=== PATIENT | female | born 1985 | race Caucasian/White ===

== ENCOUNTER 2016-08-19 22:34 | Emergency (ER) | payer BC ==
[~2016-08-19] VITALS: Ht 157.5 cm; Wt 78.0 kg
[2016-08-19 22:35] VITALS: BP 126/77
[2016-08-19] MEDS ORDERED: CITA40TA4 PO (22:47)
== END 2016-08-20 00:52 | disposition home or self-care (01) ==
LOC: M ED 23:40
DX: R04.0 Epistaxis (principal)

== ENCOUNTER → 2017-04-13 | Outpatient (REF) | payer BC | LOC: M LAB REF 20:33 | DX: R30.0 Dysuria (principal) | CPT/HCPCS: 87086 ==

== ENCOUNTER → 2017-07-18 | Outpatient (REF) | payer BC | LOC: M SFHCWAGY 08:35 | DX: Z12.4 Encounter for screening for malignant neoplasm of cervix (principal) | CPT/HCPCS: G0123 ==

== ENCOUNTER 2017-11-20 09:37 | Emergency (ER) | payer BC ==
[2017-11-20] MEDS: MECLIZINE 25 MG TABLET PO (10:28)
[2017-11-20] MEDS: METOCLOPRAMIDE 10 MG TAB PO (10:28)
== END 2017-11-20 10:33 | disposition home or self-care (01) ==
LOC: M ED 09:37
DX: R94.31 Abnormal electrocardiogram [ECG] [EKG] (principal); R51 Headache; R11.0 Nausea; M54.6 Pain in thoracic spine; F32.9 Major depressive disorder, single episode, unspecified; Z79.899 Other long term (current) drug therapy
CPT/HCPCS: 93005

== ENCOUNTER 2017-11-27 08:09 | Outpatient (RCR) | payer BC | END 2017-12-10 | LOC: M PT 08:09 | DX: R42 Dizziness and giddiness (principal) | CPT/HCPCS: 97162 ==

== ENCOUNTER 2020-05-30 12:28 | Emergency (ER) | payer BC, MEDICAID ==
[~2020-05-30] VITALS: Ht 157.5 cm; Wt 84.5 kg
[~2020-05-30 12:28] MED LIST: CITA40TA4 PO; MECL1TAB31 PO
[2020-05-30] MEDS ORDERED: MORPHINE 4 MG/ML 1ML VIAL/SYRINGE (J2270) IV ONE (13:20)
[2020-05-30 13:24] LABS: BASO # 0.1 10^3/uL (0.0-0.2); BASO % 0.3 % (0.0-1.0); EOS # 0.2 10^3/uL (0.0-0.5); EOS % 0.8 % (0.0-3.0); HEMATOCRIT 41.2 % (36.0-47.0); HEMOGLOBIN 13.4 g/dl (12.0-15.5); LYMPH # 1.5 10^3/uL (1.5-5.0); LYMPH % 7.6 % (24.0-44.0); MEAN CORPUSCULAR HEMOGLOBIN 30.2 pg (27.0-33.0); MEAN CORPUSCULAR HGB CONC 32.5 g/dl (32.0-36.5); MEAN CORPUSCULAR VOLUME 92.8 fl (80.0-96.0); MONO % 5.1 % (2.0-8.0); NEUTROPHILS # 16.4 10^3/uL (1.5-8.5); NEUTROPHILS % 85.6 % (36.0-66.0); PLATELET COUNT, AUTOMATED 240 10^3/uL (150-450); RED BLOOD COUNT 4.44 10^6/uL (4.00-5.40); WHITE BLOOD COUNT 19.1 10^3/uL (4.0-10.0)
[2020-05-30] MEDS ORDERED: ONDANSETRON 4MG/2ML VIAL IV ONE (13:40)
[2020-05-30 13:46] LABS: BILIRUBIN,DIRECT 0.2 MG/DL (0.0-0.2); BILIRUBIN,TOTAL 0.6 MG/DL (0.2-1.0)
--- NOTE | 2020-05-30 14:18 | REP ---
INDICATION: ruq pain. COMPARISON: None. TECHNIQUE: Multiple sonographic views of the abdominal right upper quadrant. FINDINGS: There is no cholelithiasis, gallbladder wall thickening or pericholecystic fluid. There is a 5 mm mucosal polyp along the gallbladder anterior wall. There is no intrahepatic or extrahepatic biliary duct dilatation. The common biliary duct measures 4 mm in diameter. The hepatic parenchyma is homogeneous and otherwise unremarkable. There are limited views of the pancreatic head that are unremarkable. The remainder of the pancreas is obscured by bowel gas. The right kidney measures 11.8 x 4.9 x 3.7 cm and is normal size. There is no right renal calculus, hydronephrosis, cystic mass or solid mass. There is no right upper quadrant abdominal free fluid. IMPRESSION: 5 mm gallbladder mucosal polyp. No cholelithiasis or biliary duct dilatation. The pancreas is mostly obscured by bowel gas. No free fluid. <Electronically signed by Gene Ramirez > 05/30/20 [id number]
[2020-05-30] MEDS ORDERED: KETOROLAC 30 MG/ML 1ML VIAL IV ONE (14:45)
[2020-05-30] MEDS ORDERED: ISOVUE-370 76% 100ML VIAL As Ordered ONE (15:33)
--- NOTE | 2020-05-30 16:18 | REP ---
INDICATION: abdominal pain leukocytosis. COMPARISON: None. TECHNIQUE: Abdomen pelvis CT with IV contrast, without bowel contrast. FINDINGS: The visualized lung vargas are unremarkable. The hepatic parenchyma, gallbladder, pancreas and spleen are unremarkable. The adrenals, kidneys and abdominal aorta are unremarkable. There is no periaortic adenopathy or mass. There is no ascites. There is no bowel distention or obstruction. There is wall thickening and luminal narrowing of the transverse colon and of the descending colon compatible with infectious versus inflammatory colitis in the appropriate clinical setting. There are no inflammatory changes in the mesentery. Pelvis: The uterus and bladder are unremarkable. There are bilateral tubal ligation clips. There is a 2.6 cm right adnexal cyst. The appendix is unremarkable. The terminal ileum is unremarkable. There is no pelvic free fluid or adenopathy. IMPRESSION: There are findings compatible with infectious versus inflammatory colitis of transverse colon and descending colon. There is a 2.6 cm right adnexal cyst. There are bilateral tubal ligation clips. The appendix and terminal ileum are unremarkable. There is no ascites or adenopathy. <Electronically signed by Gene Ramirez > 05/30/20 [id number]
[2020-05-30] MEDS ORDERED: metroNIDAZOLE (FLAGYL) 500MG TABLET PO ONE (16:30)
[2020-05-30] MEDS ORDERED: CIPROFLOXACIN 500MG TABLET PO ONE (16:30)
[2020-05-30] MEDS ORDERED: CIPR-249 PO (16:32)
[2020-05-30] MEDS ORDERED: ONDA4TAB6 PO (16:32)
[2020-05-30] MEDS ORDERED: FLAG500T PO (16:32)
[2020-05-30 16:49] VITALS: BP 120/72
== END 2020-05-30 16:58 | disposition home or self-care (01) ==
LOC: M ED 12:28
DX: N83.299 Other ovarian cyst, unspecified side (principal); K52.9 Noninfective gastroenteritis and colitis, unspecified; F32.9 Major depressive disorder, single episode, unspecified; N83.8 Other noninflammatory disorders of ovary, fallopian tube and broad ligament; K82.4 Cholesterolosis of gallbladder; Z79.899 Other long term (current) drug therapy
CPT/HCPCS: 36415; 74177; 76705; 80047; 80076; 81001; 83690; 84702; 85025; 96374; 96375; 99284; J1885; J2270; J2405; Q9967

== ENCOUNTER → 2020-06-02 | Outpatient (REF) | payer MEDICAID ==
[~2020-06-02] MED LIST changes: +CIPR-249 PO; +FLAG500T PO; +ONDA4TAB6 PO
[2020-06-02 16:41] LABS: BASO # 0.1 10^3/uL (0.0-0.2); BASO % 0.7 % (0.0-1.0); EOS # 0.2 10^3/uL (0.0-0.5); EOS % 2.4 % (0.0-3.0); HEMOGLOBIN 13.8 g/dl (12.0-15.5); LYMPH % 27.6 % (24.0-44.0); MEAN CORPUSCULAR HEMOGLOBIN 30.5 pg (27.0-33.0); MEAN CORPUSCULAR HGB CONC 32.1 g/dl (32.0-36.5); MEAN CORPUSCULAR VOLUME 95.1 fl (80.0-96.0); MONO # 0.6 10^3/uL (0.0-0.8); MONO % 7.9 % (2.0-8.0); NEUTROPHILS # 4.4 10^3/uL (1.5-8.5); NEUTROPHILS % 61.1 % (36.0-66.0); PLATELET COUNT, AUTOMATED 283 10^3/uL (150-450); RED BLOOD COUNT 4.52 10^6/uL (4.00-5.40); WHITE BLOOD COUNT 7.1 10^3/uL (4.0-10.0)
[2020-06-02 17:11] LABS: ALBUMIN 3.9 GM/DL (3.2-5.2); ALT/SGPT 21 U/L (12-78); BILIRUBIN,TOTAL 0.2 MG/DL (0.2-1.0); BLOOD UREA NITROGEN 15 MG/DL (7-18); CALCIUM LEVEL 8.7 MG/DL (8.5-10.1); CARBON DIOXIDE LEVEL 28 MEQ/L (21-32); CHLORIDE LEVEL 110 MEQ/L (98-107); CREATININE FOR GFR 0.82 MG/DL (0.55-1.30); GLOMERULAR FILTRATION RATE > 60.0 (>60); GLUCOSE, FASTING 62 MG/DL (70-100); POTASSIUM SERUM 4.5 MEQ/L (3.5-5.1); SODIUM LEVEL 142 MEQ/L (136-145); TOTAL PROTEIN 6.9 GM/DL (6.4-8.2)
== END ==
LOC: M SFHCADAM 11:26
PROVIDERS: ATTEND Physician Assistant
DX: K52.9 Noninfective gastroenteritis and colitis, unspecified (principal); D72.823 Leukemoid reaction

== ENCOUNTER → 2020-07-24 | Outpatient (CLI) | payer BC, MEDICAID ==
--- NOTE | 2020-07-26 08:22 | REP ---
INDICATION: N83.201 CYST OF RT OVARY COMPARISON: None. TECHNIQUE: Transabdominal pelvic ultrasound followed by transvaginal examination for better evaluation of the endometrium and adnexa with color Doppler evaluation of the ovaries. FINDINGS: Bladder is unremarkable and measures 13.2 x 7.7 x 10.1 cm. Heterogeneous anteverted uterus measures 13.4 x 4.1 x 6.5 cm. The endometrial complex measures 7.5 mm thickness. Evidence for prior Caesarean section scar. Bilateral ovaries are normal in appearance and vascularity without evidence for torsion. Right ovary measures 2.8 x 2.0 x 2.5 cm; R I = 0.60. Left ovary measures 2.2 x 1.6 x 1.8 cm; R I = 0.54. No ovarian/adnexal cysts. No pelvic fluid or mass lesion. IMPRESSION: Essentially normal pelvic ultrasound. <Electronically signed by Lincoln Erickson > 07/26/20 [id number]
== END ==
LOC: M WHC 08:18
PROVIDERS: ATTEND Advanced Practice Midwife
DX: N85.4 Malposition of uterus (principal); Z98.890 Other specified postprocedural states

== ENCOUNTER → 2020-10-21 | Outpatient (REF) | payer MEDICAID, BC | LOC: M SFHCWAGY 10:35 | PROVIDERS: ATTEND Advanced Practice Midwife | DX: Z12.4 Encounter for screening for malignant neoplasm of cervix (principal) ==

== ENCOUNTER → 2021-04-09 | Outpatient (REF) ==
[~2021-04-09] MED LIST changes: -CITA40TA4 PO; +CITA40TA7 PO
== END ==
LOC: M EMP 10:36
PROVIDERS: ATTEND Family Medicine
DX: Z20.822 Contact with and (suspected) exposure to COVID-19 (principal)

== ENCOUNTER → 2021-04-30 | Outpatient (CLI) | payer BC, MEDICAID ==
[~2021-04-30] MED LIST changes: +CYCL5TAB PO
== END ==
LOC: M RAD 11:43 → M LAB 11:43
PROVIDERS: ATTEND Physician Assistant
DX: S39.012A Strain of muscle, fascia and tendon of lower back, initial encounter (principal); X58.XXXA Exposure to other specified factors, initial encounter; Y92.9 Unspecified place or not applicable; Y93.9 Activity, unspecified; Y99.9 Unspecified external cause status

== ENCOUNTER 2021-05-12 18:17 | Emergency (ER) | payer OTHER, BC, MEDICAID ==
[~2021-05-12] VITALS: Ht 157.5 cm; Wt 81.8 kg
[~2021-05-12 18:17] MED LIST changes: -CYCL5TAB PO
[2021-05-12 18:18] VITALS: BP 149/79
[2021-05-12] MEDS ORDERED: CYCL5TAB PO (21:54)
[2021-05-12] MEDS ORDERED: CYCLOBENZAPRINE 5MG TABLET PO ONE (21:55)
== END 2021-05-12 22:10 | disposition home or self-care (01) ==
LOC: M ED 18:17
DX: S39.012A Strain of muscle, fascia and tendon of lower back, initial encounter (principal); X58.XXXA Exposure to other specified factors, initial encounter; Y92.9 Unspecified place or not applicable; Y93.89 Activity, other specified; Y99.0 Civilian activity done for income or pay; Z79.899 Other long term (current) drug therapy

== ENCOUNTER → 2021-06-11 | Outpatient (CLI) | payer OTHER, BC, MEDICAID ==
[~2021-06-11] MED LIST changes: +CYCL5TAB PO
== END ==
LOC: M PLARAD 07:59
PROVIDERS: ATTEND Orthopaedic Surgery
DX: S39.012D Strain of muscle, fascia and tendon of lower back, subsequent encounter (principal); M47.816 Spondylosis without myelopathy or radiculopathy, lumbar region; M51.26 Other intervertebral disc displacement, lumbar region

== ENCOUNTER → 2021-07-02 | Outpatient (REF) | LOC: M EMP 13:09 | PROVIDERS: ATTEND Family Medicine | DX: Z20.822 Contact with and (suspected) exposure to COVID-19 (principal) ==

== ENCOUNTER 2022-04-13 09:44 | Emergency (ER) | payer BC, MEDICAID ==
[~2022-04-13] VITALS: Ht 157.5 cm; Wt 67.7 kg
[2022-04-13 09:46] VITALS: BP 149/65
[2022-04-13 10:32] LABS: BASO % 0.5 % (0.0-1.0); EOS # 0.1 10^3/uL (0.0-0.5); EOS % 1.5 % (0.0-3.0); HEMATOCRIT 39.5 % (36.0-47.0); HEMOGLOBIN 13.1 g/dl (12.0-15.5); LYMPH # 1.2 10^3/uL (1.5-5.0); LYMPH % 19.5 % (24.0-44.0); MEAN CORPUSCULAR HEMOGLOBIN 31.3 pg (27.0-33.0); MEAN CORPUSCULAR HGB CONC 33.2 g/dl (32.0-36.5); MEAN CORPUSCULAR VOLUME 94.3 fl (80.0-96.0); MONO # 0.4 10^3/uL (0.0-0.8); NEUTROPHILS # 4.3 10^3/uL (1.5-8.5); NEUTROPHILS % 72.3 % (36.0-66.0); PLATELET COUNT, AUTOMATED 237 10^3/uL (150-450); RED BLOOD COUNT 4.19 10^6/uL (4.00-5.40)
[2022-04-13 10:56] LABS: CK-MB VALUE MASS < 1.0 NG/ML (<3.6)
[2022-04-13 10:59] LABS: BLOOD UREA NITROGEN 17 MG/DL (9-23); CARBON DIOXIDE LEVEL 24 MMOL/L (20-31); CHLORIDE LEVEL 111 MMOL/L (98-107); CPK CREATINE PHOSPHOKINASE 80 U/L (34-145); CREATININE FOR GFR 0.74 MG/DL (0.55-1.30); GLOMERULAR FILTRATION RATE > 60.0 (>60); GLUCOSE, FASTING 78 MG/DL (60-100); MB/CK RELATIVE INDEX 1.25 (< OR =4); POTASSIUM SERUM 4.3 MMOL/L (3.5-5.1); SODIUM LEVEL 142 MMOL/L (136-145)
[2022-04-13 11:01] LABS: FREE T4 0.89 NG/DL (0.89-1.76); THYROID STIMULATING HORMONE 1.339 uIU/ML (0.55-4.78)
[2022-04-13 11:06] LABS: RSV AMPLIFICATION NEGATIVE (NEGATIVE)
== END 2022-04-13 14:37 | disposition left against medical advice (07) ==
LOC: M ED 09:44
DX: Z53.21 Procedure and treatment not carried out due to patient leaving prior to being seen by health care provider (principal)

== ENCOUNTER 2024-12-07 08:25 | Emergency (ER) | payer BC, MEDICAID ==
[~2024-12-07] VITALS: Ht 157.5 cm; Wt 76.3 kg
[~2024-12-07 08:25] MED LIST changes: -CYCL5TAB PO; +CYCL5TAB4 PO; +MECL-209 PO; -MECL1TAB31 PO; +ONDA-282 PO; -ONDA4TAB6 PO
[2024-12-07 09:00] LABS: APPEARANCE, URINE CLEAR (CLEAR); BACTERIA, URINE AUTO 1+ (NEGATIVE); BILIRUBIN, URINE AUTO NEGATIVE (NEGATIVE); BLOOD, URINE BLOOD 1+ (NEGATIVE); GLUCOSE, URINE (UA) AUTO NEGATIVE (NEGATIVE); KETONE, URINE AUTO NEGATIVE (NEGATIVE); LEUKOCYTE ESTERASE, URINE AUTO 2+ (NEGATIVE); NITRITE, URINE AUTO NEGATIVE (NEGATIVE); PROTEIN, URINE AUTO NEGATIVE (NEGATIVE); RBC, URINE AUTO 0 /HPF (0-3); SPECIFIC GRAVITY URINE AUTO 1.002 (1.002-1.035); SQUAMOUS EPITHELIAL CELL UR AU 2 /HPF (0-6); URINE PREG TEST NEGATIVE (NEGATIVE); UROBILINOGEN, URINE AUTO 0.2 mg/dL (0.0-2.0); WBC, URINE AUTO 12 /HPF (0-3)
[2024-12-07 09:03] LABS: BASO # 0.1 10^3/uL (0.0-0.2); BASO % 0.4 % (0.0-1.0); EOS # 0.1 10^3/uL (0.0-0.5); EOS % 0.5 % (0.0-3.0); LYMPH # 1.8 10^3/uL (1.5-5.0); LYMPH % 11.4 % (24.0-44.0); MONO # 1.0 10^3/uL (0.0-0.8); MONO % 6.2 % (2.0-8.0); NEUTROPHILS # 12.5 10^3/uL (1.5-8.5); NEUTROPHILS % 81.0 % (36.0-66.0); PLATELET COUNT, AUTOMATED 265 10^3/uL (150-450)
[2024-12-07 09:27] LABS: CALCIUM LEVEL 8.6 MG/DL (8.5-10.1); CARBON DIOXIDE LEVEL 25 MMOL/L (20-31); CHLORIDE LEVEL 107 MMOL/L (98-107); CREATININE FOR GFR 0.76 MG/DL (0.55-1.30); GLOMERULAR FILTRATION RATE > 90.0 (>58); POTASSIUM SERUM 4.0 MMOL/L (3.5-5.1); SODIUM LEVEL 140 MMOL/L (136-145)
[2024-12-07] MEDS ORDERED: CITA10TA7 (09:27)
[2024-12-07] MEDS: KETOROLAC 30 MG/ML 1 ML VIAL IV ONE (12:03)
[2024-12-07] MEDS ORDERED: ISOVUE-370 76% 100 ML VIAL As Ordered ONE (12:14)
[2024-12-07 15:51] LABS: HIV 1&2 SCREEN NEGATIVE (NEGATIVE)
[2024-12-07] MEDS: cefTRIAXone 500 MG VIAL IM ONE (16:03)
[2024-12-07] MEDS: LIDOCAINE 1% SDV 5 ML VIAL DILUENT ONE (16:03)
[2024-12-07] MEDS: ACETAMINOPHEN *IV* 1,000 MG in IV 1 EA IV ONE (16:10)
[2024-12-07 16:44] VITALS: TEMP 97.9
[2024-12-07 17:13] LABS: Trichomonas vaginalis (AMP) NOT DETECTED (NEGATIVE)
[2024-12-07 17:36] LABS: GC DNA AMPLIFICATION NEGATIVE (NEGATIVE)
[2024-12-07] MEDS ORDERED: NITR100C3 PO (19:51)
[2024-12-07] MEDS ORDERED: PHEN-372 PO (19:52)
[2024-12-07] MEDS ORDERED: METR-265 PO (20:02)
[2024-12-07] MEDS: NITROFURANTOIN 100 MG CAP PO ONE (20:13)
[2024-12-07 20:21] VITALS: BP 119/57; O2SAT 99
== END 2024-12-07 20:24 | disposition home or self-care (01) ==
LOC: M ED 08:25
DX: N39.0 Urinary tract infection, site not specified (principal); N73.9 Female pelvic inflammatory disease, unspecified; Z79.899 Other long term (current) drug therapy
CPT/HCPCS: 74177; 80048; 81001; 84703; 85025; 86780; 87210; 87389; 87661; 87810; 87850; 96365; 96372; 96375; 99284; J0131; J0696; J1885; Q9967

== ENCOUNTER 2024-12-09 09:15 | Emergency (ER) | payer BC ==
[~2024-12-09] VITALS: Ht 157.5 cm; Wt 75.0 kg
[~2024-12-09 09:15] MED LIST changes: +CITA10TA7; +METR-265 PO; +NITR100C3 PO; +PHEN-372 PO
[2024-12-09] MEDS: KETOROLAC 30 MG/ML 1 ML VIAL IV ONE (11:21)
[2024-12-09 11:38] LABS: BASO # 0.0 10^3/uL (0.0-0.2); BASO % 0.4 % (0.0-1.0); EOS # 0.1 10^3/uL (0.0-0.5); EOS % 1.5 % (0.0-3.0); LYMPH # 1.5 10^3/uL (1.5-5.0); LYMPH % 16.1 % (24.0-44.0); MONO # 0.7 10^3/uL (0.0-0.8); MONO % 6.8 % (2.0-8.0); NEUTROPHILS # 7.1 10^3/uL (1.5-8.5); NEUTROPHILS % 74.8 % (36.0-66.0); PLATELET COUNT, AUTOMATED 280 10^3/uL (150-450)
[2024-12-09 11:45] LABS: KETONE, URINE AUTO RFX NEGATIVE (NEGATIVE); LEUKOCYTE ESTERASE UR AUTO RFX NEGATIVE (NEGATIVE); RBC, URINE AUTO RFX 0 /HPF (0-3); SQUAM EPITHELIAL CELL UR AURFX 3 /HPF (0-6); WBC, URINE AUTO RFX 5 /HPF (0-3)
[2024-12-09 11:54] LABS: NITRITE, URINE AUTO RFX POSITIVE (NEGATIVE)
[2024-12-09 12:00] LABS: CALCIUM LEVEL 9.1 MG/DL (8.5-10.1); CARBON DIOXIDE LEVEL 26 MMOL/L (20-31); CHLORIDE LEVEL 108 MMOL/L (98-107); CREATININE FOR GFR 0.77 MG/DL (0.55-1.30); GLOMERULAR FILTRATION RATE > 90.0 (>58); POTASSIUM SERUM 4.6 MMOL/L (3.5-5.1); SODIUM LEVEL 141 MMOL/L (136-145)
[2024-12-09 14:01] LABS: GC DNA AMPLIFICATION NEGATIVE (NEGATIVE)
[2024-12-09] MEDS ORDERED: DOXY-441 PO (15:31)
[2024-12-09] MEDS ORDERED: KETO-204 PO (15:31)
[2024-12-09] MEDS ORDERED: FLUC150T9 PO (15:31)
[2024-12-09 15:37] VITALS: BP 122/67; TEMP 97.8; O2SAT 99
== END 2024-12-09 15:45 | disposition home or self-care (01) ==
LOC: M ED 09:15
DX: N39.0 Urinary tract infection, site not specified (principal); N73.9 Female pelvic inflammatory disease, unspecified
CPT/HCPCS: 76830; 76856; 80048; 81001; 83605; 85025; 87070; 87086; 87205; 87810; 87850; 93976; 96374; 99284; J1885

== ENCOUNTER → 2025-01-01 | Outpatient (CLI) | payer BC ==
[~2025-01-01] MED LIST changes: +DOXY-441 PO; +FLUC150T9 PO; +KETO-204 PO
[2025-01-01 14:58] LABS: Trichomonas vaginalis (AMP) NOT DETECTED (NEGATIVE)
[2025-01-01 15:20] LABS: GC DNA AMPLIFICATION NEGATIVE (NEGATIVE)
[2025-01-03 13:22] LABS: HPV APTIMA Not Detected (Not Detected)
== END ==
LOC: M PLAIMG 09:58
PROVIDERS: ATTEND Nurse Practitioner Family
DX: R10.23 Pelvic and perineal pain bilateral (principal); N94.10 Unspecified dyspareunia; Z12.4 Encounter for screening for malignant neoplasm of cervix
CPT/HCPCS: 74018; 87070; 87077; 87086; 87624; 87661; 87810; 87850; G0123

== ENCOUNTER → 2025-01-22 | Outpatient (REF) | payer BC | LOC: M SFHCWAGY 13:00 | PROVIDERS: ATTEND Nurse Practitioner Family | DX: N92.0 Excessive and frequent menstruation with regular cycle (principal) ==